=== PATIENT | female | born 1985 | race Hispanic/Latino ===

== ENCOUNTER 2022-12-31 22:46 | Emergency (ER) | payer BC ==
[2023-01-01] MEDS ORDERED: diphenhydrAMINE 50 MG/ML VIAL ONE (00:01)
[2023-01-01] MEDS ORDERED: Ondansetron PF 4 MG/2 ML Vial ONE (00:02)
[2023-01-01 00:36] LABS: #Monocytes 0.7 10x3/uL (0.0-1.1); #Neutrophils 8.7 10x3/uL (1.5-8.4); %Basophils 0.3 % (0.0-2.0); %Eosinophils 0.3 % (0.0-6.0); %Monocytes 6.7 % (0.0-10.0); Hemoglobin 11.7 g/dL (12.0-15.5); Mean Corpuscular HGB CONC 33.9 g/dL (32.0-36.0); Mean Corpuscular Hemoglobin 31.1 pg (27.0-33.0); Mean Corpuscular Volume 91.8 fl (81.6-98.3); Mean Platelet Volume 10.9 fl (7.4-10.4); Platelet Count 290 10x3/uL (150-450); RBC Distribution Width 13.2 % (11.5-14.5); Red Blood Cell (RBC) Count 3.76 10x6/uL (3.90-5.03); White Blood Cell (WBC) Count 10.1 10x3/uL (3.5-10.5)
[2023-01-01 00:41] LABS: Bilirubin Neg (Negative); Blood, Urine 25 (Negative); Clarity Clear (Clear); Glucose, Urine (Dipstick) Normal (Negative); Ketone, Urine 150 mg/dL (Negative); Leukocyte 500 (Negative); Nitrite Negative (Negative); Protein, Urine (Dipstick) 30 mg/dl (Neg-Trace); Specific Gravity, Urine 1.015 (1.005-1.030)
[2023-01-01 00:45] LABS: Bacteria/HPF 1+ HPF (None Seen); RBC/HPF 0-3 HPF (0-3)
[2023-01-01 00:45] LABS: ALT (SGPT) 27 U/L (8-55); AST (SGOT) 24 U/L (5-34); Albumin 3.4 g/dL (3.5-5.0); Alkaline Phosphatase 126 U/L (40-110); Anion Gap 14 mmol/L (10-20); BUN (Urea Nitrogen) 9 mg/dL (7.0-18.7); Bilirubin, Total 0.6 mg/dL (0.2-1.2); Calc. Creatinine Clearance 0 mL/min (70-130); Calcium 8.5 mg/dL (7.8-10.44); Carbon Dioxide 16 mmol/L (22-29); Chloride 108 mmol/L (98-107); Estimated GFR 118; Globulin 3.8 g/dL (2.4-3.5); Glucose 96 mg/dL (70-105); Potassium 3.8 mmol/L (3.5-5.1); Protein, Total 7.2 g/dL (6.0-8.3); Sodium 134 mmol/L (136-145)
[2023-01-01] MEDS ORDERED: cefTRIAXone (ROCEPHIN) 1 GM VIAL ONE (01:13)
[2023-01-01] MEDS ORDERED: Acetaminophen 500 MG TAB ONE (01:51)
== END 2023-01-01 02:00 | disposition home or self-care (01) ==
LOC: CSHERS 22:46
DX: R11.10 Vomiting, unspecified (principal); N39.0 Urinary tract infection, site not specified
CPT/HCPCS: 80053; 81003; 81015; 85025; 87077; 87086; J0696; J1200; J2405

== ENCOUNTER 2023-01-02 06:30 | Inpatient (IN) | payer BC ==
[2023-01-02] MEDS ORDERED: hydrALAZINE 20 MG/ML VIAL SLOW IVP PRN ×2 (08:16→08:41)
[2023-01-02 08:22] LABS: Fetal Membranes Rupture RUPTURE DETECTED (No Rupture)
[2023-01-02] MEDS ORDERED: Ibuprofen 800 MG TAB PO PRN (08:39)
[2023-01-02] MEDS ORDERED: Lidocaine 1% (PF) 30 ML VIAL SC PRN (08:39)
[2023-01-02] MEDS ORDERED: HYDROcodone/Acetaminophen 5/325 mg Tablet PO PRN (08:39)
[2023-01-02] MEDS ORDERED: Ondansetron PF 4 MG/2 ML Vial IVP PRN ×2 (08:41→16:33)
[2023-01-02] MEDS ORDERED: Docusate 100 MG CAP PO PRN (08:41)
[2023-01-02] MEDS ORDERED: Misoprostol 200 MCG TAB PR PRN (08:41)
[2023-01-02] MEDS ORDERED: Carboprost 250 MCG/ML AMP IM PRN (08:41)
[2023-01-02] MEDS ORDERED: Acetaminophen 500 MG TAB PO PRN (08:41)
[2023-01-02] MEDS ORDERED: Promethazine HCl 25 MG/ML VIAL IM PRN ×2 (08:41→16:33)
[2023-01-02] MEDS ORDERED: Methylergonovine 0.2 MG/ML VIAL IM PRN (08:41)
[2023-01-02] MEDS ORDERED: Butorphanol Tartrate 1 MG/ML VIAL SLOW IVP PRN (08:41)
[2023-01-02] MEDS ORDERED: Diphenoxylate HCl/Atropine Tablet PO PRN (08:41)
[2023-01-02] MEDS ORDERED: Penicillin G Potassium 5 MILL.UNITS in Sodium Chloride 0.9% 100 ML IVPB SCH (08:45)
[2023-01-02] MEDS ORDERED: NS w/ Oxytocin 30 units 500 ML IV SCH ×3 (08:45)
[2023-01-02] MEDS ORDERED: Lactated Ringer's 1,000 ML IV SCH (08:45)
[2023-01-02] MEDS ORDERED: Misoprostol 100 MCG TAB PO SCH (09:00)
[2023-01-02] MEDS ORDERED: Penicillin G Potassium 5 MILL.UNITS VIAL ONE (10:05)
[2023-01-02] MEDS ORDERED: Misoprostol 100 MCG TAB ONE (10:05)
[2023-01-02 10:07] VITALS: BMI 34.0
[2023-01-02 10:39] LABS: Hemoglobin 11.6 g/dL (12.0-15.5); Mean Corpuscular HGB CONC 33.4 g/dL (32.0-36.0); Mean Corpuscular Hemoglobin 31.1 pg (27.0-33.0); Mean Platelet Volume 10.5 fl (7.4-10.4); Platelet Count 284 10x3/uL (150-450); RBC Distribution Width 13.3 % (11.5-14.5); Red Blood Cell (RBC) Count 3.73 10x6/uL (3.90-5.03); White Blood Cell (WBC) Count 6.6 10x3/uL (3.5-10.5)
[2023-01-02 10:57] LABS: HBSAg Index 0.15 S/CO (0-0.99); Hep B Surf Ag - L&D Non-Reactive S/CO (NonReactive)
[2023-01-02 10:59] LABS: Syphilis Antibody Nonreactive (Nonreactive); Syphilis Antibody Index 0.04 S/CO (<1.00 Non-Reactive)
[2023-01-02] MEDS ORDERED: Bupivacaine 0.25% HCL 30 ML VIAL ONE (12:15)
[2023-01-02] MEDS ORDERED: Bupivacaine PF 0.5% 30 ML VIAL ONE (12:15)
[2023-01-02] MEDS ORDERED: Terbutaline Sulfate 1 MG/ML VIAL ONE (13:18)
[2023-01-02] MEDS: Penicillin G 2.5 MILL.units 2.5 MILL.UNITS in Premix Bag 1 BAG IVPB SCH ×3 (13:23→22:41)
[2023-01-02] MEDS ORDERED: Fentanyl 2 mcg/Bup 0.1% Cadd 100 ML ONE (15:16)
[2023-01-02 15:29] LABS: HIV (1/2) Antibody/Antigen Non-Reactive (NonReactive); HIV 1/2 INDEX 0.06 S/CO (<1.00)
[2023-01-02] MEDS ORDERED: Lactated Ringer's 500 ML IV PRN (16:33)
[2023-01-02] MEDS ORDERED: Moisturizing Cream (Eucerin) 113 GM JAR TOP PRN (16:33)
[2023-01-02] MEDS ORDERED: Naloxone HCl 0.4 mg/ml Vial IVP PRN ×2 (16:33)
[2023-01-02] MEDS ORDERED: ePHEDrine Sulfate 50 MG/10 ML VIAL SLOW IVP PRN (16:33)
[2023-01-02] MEDS ORDERED: Acetaminophen 325 MG TAB PO PRN (16:33)
[2023-01-02] MEDS ORDERED: diphenhydrAMINE 50 MG/ML VIAL IVP PRN (16:33)
[2023-01-02] MEDS ORDERED: Communication Order-Pharmacy FS SCH (16:45)
[2023-01-02] MEDS ORDERED: Fentanyl 2 mcg/Bupivacaine 0.1% Cassette 100 ML EPIDURAL SCH (16:45)
[2023-01-02] MEDS ORDERED: Fentanyl 100 MCG/2 ML VIAL ONE (23:15)
[2023-01-03] MEDS ORDERED: Dexmedetomidine 200 MCG/2 ML VIAL ONE (01:15)
[2023-01-03] MEDS ORDERED: Boostrix 0.5 ML (Tdap) VIAL (>/=7 yrs of age) IM ONE (06:31)
[2023-01-03] MEDS ORDERED: HYDROcodone/Acetaminophen 5/325 mg Tablet PO PRN (06:31)
[2023-01-03] MEDS ORDERED: Preparation H Ointment 28 GM TUBE PR PRN (06:31)
[2023-01-03] MEDS ORDERED: Milk Of Magnesia 30 ML UDCUP PO PRN (06:31)
[2023-01-03] MEDS ORDERED: Ondansetron PF 4 MG/2 ML Vial IVP PRN (06:31)
[2023-01-03] MEDS ORDERED: hydrALAZINE 20 MG/ML VIAL SLOW IVP PRN (06:31)
[2023-01-03] MEDS ORDERED: Lanolin Ointment 7 GM TUBE TOP PRN (06:31)
[2023-01-03] MEDS ORDERED: Benzocaine-Menthol 82.5 ML CAN TOP PRN (06:31)
[2023-01-03] MEDS ORDERED: Bisacodyl 10 MG SUPP PR PRN (06:31)
[2023-01-03] MEDS ORDERED: diphenhydrAMINE 25 MG CAP PO PRN (06:31)
[2023-01-03] MEDS ORDERED: Ibuprofen 800 MG TAB PO SCH (07:00)
[2023-01-03] MEDS: Nitrofurantoin Monohyd/M-Cryst 100 MG CAP PO SCH ×2 (09:00→22:16)
[2023-01-03] MEDS: Ferrous Sulfate 325 MG TAB PO SCH (10:18)
[2023-01-03] MEDS: Prenatal Vitamin 1 TAB PO SCH (11:18)
[2023-01-03] MEDS: Docusate 100 MG CAP PO SCH ×2 (11:18→22:16)
[2023-01-03] MEDS: Ibuprofen 800 MG TAB PO SCH ×2 (14:25→22:16)
[2023-01-03] MEDS: HYDROcodone/Acetaminophen 5/325 mg Tablet PO PRN (20:14)
[2023-01-04] MEDS: Ibuprofen 800 MG TAB PO SCH ×3 (06:10→21:24)
[2023-01-04] MEDS: Ferrous Sulfate 325 MG TAB PO SCH ×3 (07:24→17:09)
[2023-01-04] MEDS: Nitrofurantoin Monohyd/M-Cryst 100 MG CAP PO SCH ×2 (08:28→21:24)
[2023-01-04] MEDS: Prenatal Vitamin 1 TAB PO SCH (08:28)
[2023-01-04] MEDS: HYDROcodone/Acetaminophen 5/325 mg Tablet PO PRN (08:28)
[2023-01-04] MEDS: Docusate 100 MG CAP PO SCH ×2 (08:28→21:24)
[2023-01-05] MEDS: Ibuprofen 800 MG TAB PO SCH (05:50)
[2023-01-05] MEDS: Ferrous Sulfate 325 MG TAB PO SCH (08:07)
[2023-01-05] MEDS: Prenatal Vitamin 1 TAB PO SCH (08:08)
[2023-01-05] MEDS: Nitrofurantoin Monohyd/M-Cryst 100 MG CAP PO SCH (08:08)
[2023-01-05] MEDS: Docusate 100 MG CAP PO SCH (08:08)
[2023-01-05 08:32] VITALS: BP 112/75; TEMP 97.7
== END 2023-01-05 11:25 | disposition home or self-care (01) | DRG 806 ==
LOC: CSHLD/OP 06:30 → CSHLD 09:01 → CSHPP 01-03 09:15
PROVIDERS: ADMIT Obstetrics & Gynecology; ATTEND Obstetrics & Gynecology
PROC: 10907ZC Drainage of Amniotic Fluid, Therapeutic from Products of Conception, Via Natural or Artificial Opening (ICD-10-PCS; 2023-01-02)
PROC: 10H07YZ Insertion of Other Device into Products of Conception, Via Natural or Artificial Opening (ICD-10-PCS; 2023-01-02)
PROC: 10E0XZZ Delivery of Products of Conception, External Approach (ICD-10-PCS; principal; 2023-01-03)
PROC: 0KQM0ZZ Repair Perineum Muscle, Open Approach (ICD-10-PCS; 2023-01-03)
PROC: 3E033VJ Introduction of Other Hormone into Peripheral Vein, Percutaneous Approach (ICD-10-PCS; 2023-01-03)
DX: O42.02 Full-term premature rupture of membranes, onset of labor within 24 hours of rupture (principal); N39.0 Urinary tract infection, site not specified; Z37.0 Single live birth; O23.43 Unspecified infection of urinary tract in pregnancy, third trimester; O70.1 Second degree perineal laceration during delivery; O24.425 Gestational diabetes mellitus in childbirth, controlled by oral hypoglycemic drugs; Z3A.37 37 weeks gestation of pregnancy; Z79.84 Long term (current) use of oral hypoglycemic drugs; Z79.82 Long term (current) use of aspirin; Z79.899 Other long term (current) drug therapy; Z83.3 Family history of diabetes mellitus
CPT/HCPCS: 36415; 36416; 51702; 80053; 81003; 81015; 84112; 85025; 85027; 86780; 86850; 86900; 86901; 87077; 87086; 87340; 87389; 99285; J0696; J1200; J2210; J2405; J2540; J2590; J3010; J3490; J7120; S0020